=== PATIENT | male | born 1975 | race Caucasian/White ===

== ENCOUNTER 2018-04-14 17:08 | Emergency (ER) | payer SELFPAY ==
--- NOTE | 2018-04-14 17:32 | EDPHY ---
H & P Stated Complaint: L leg redness and swelling Time Seen by Provider: 04/14/18 17:31 HPI/ROS: HPI: This is a 43-year-old male who presents with Chief Complaint: L leg redness and swelling Location: Left lower leg Quality: Swelling Duration: 2 days Signs and Symptoms: No bleeding, no radiation, no numbness, no weakness, no tingling, no incontinence, no decreased range of motion, + swelling, + pain, no fever Timing: Gradually worsening Severity: [id number] Context: Patient presents with 2 complaints; 1. Two day history of left lower leg swelling and tenderness in his calf. Patient is a smoker. Denies any recent long distance travel. Patient reports that approximately 2 months ago he fell down a hill and cut his leg on a pipe. When he fell down the hill he also put his leg into contaminated water. He reports that he developed cellulitis and was placed on an antibiotic for 14 days. He denies any redness, warmth, discharge. No recent trauma. Tetanus is current. 2. Over the past 4-5 days,he has developed discomfort and soreness in his left arm that starts at the left lateral neck and extends into his 3rd 4th and 5th finger. He reports some tingling in his 3rd 4th and 5th fingers. 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 He has tried nothing for the symptoms. He denies numbness/decreased range of motion/redness/ swelling. Reports that he has a primary care provider and last laboratory studies were 6 months ago and within normal limits per the patient. Modifying Factors: None Comment: ROS: see HPI Constitutional: No fever, no chills, no weight loss Eyes: No blurred vision Respiratory: No shortness of breath, no cough Cardiovascular: No chest pain Gastrointestinal: No nausea, no vomiting no diarrhea Genitourinary: No dysuria Extremities: No myalgias Neurologic: No weakness, no numbness Skin: No rashes Hematologic: No bruising, no bleeding MEDICAL/SURGICAL/SOCIAL HISTORY: Medical history: Left leg cellulitis, asthma Surgical history: Denies Social history: Current every day smoker. 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 CONSTITUTIONAL: Extremely polite and cooperative middle-aged white male, awake and alert, no obvious distress HEENT: Atraumatic and normocephalic. NECK: supple, no midline tenderness, flexion 45 degrees, extension 45 degrees, right and left lateral flexion 45 degrees. No meningismus. Reproducible left trapezius muscle spasm and tenderness with palpation. Cardiovascular: Normal S1/S2, regular rate, regular rhythm, without murmur rub or gallop. PULMONARY/CHEST: Symmetrical and nontender. no crepitus. Clear to auscultation bilaterally. Good air movement. No accessory muscle usage. ABDOMEN: Soft, nondistended, nontender, no ecchymosis. PELVIC: no pain with rocking; bilateral hips flexion 125 degrees, extension 30 degrees, with no pain internal rotation and no pain external rotation. BACK: No midline tenderness, no paraspinous spasm, deep tendon reflexes 2/2, no pain with straight leg raise, No foot drop. Achilles reflexes are equal bilaterally. Able to walk on heels and toes without difficulty. EXTREMITIES: 2/2 pulses, strength 5/5, left SHOULDER: Arc test abduction to 180, abduction to 45, horizontal flexion 130, horizontal extension to 45, deltoid strength 5/5. No pain with Neer test/Mccray test (impingement). No Tenderness to palpation over AC joint. DIP/PIP/MCP flexion/extension intact with good light touch sensation. no deformities, no clubbing, no cyanosis. Left calf is twice the size of his right calf. Varicose veins present on bilateral lower extremities. Positive Homans sign. Negative palpable cords. NEUROLOGICAL: no focal neuro deficits. GCS 15. Light touch sensation intact. SKIN: Warm and dry, tattoos present, no erythema. no rash. Good capillary refill. Source: Patient Exam Limitations: No limitations - Personal History Current Tetanus/Diphtheria Vaccine: Yes Current Tetanus Diphtheria and Acellular Pertussis (TDAP): Yes - Medical/Surgical History Hx Asthma: Yes Hx Chronic Respiratory Disease: No Hx Diabetes: No Hx Cardiac Disease: No Hx Renal Disease: No Hx Cirrhosis: No Hx Alcoholism: No Hx HIV/AIDS: No Hx Splenectomy or Spleen Trauma: No Other PMH: L leg cellulitis, asthma, - Social History Smoking Status: Current every day smoker Constitutional: Initial Vital Signs Temperature (C) 37.1 C 04/14/18 17:22 Heart Rate 76 04/14/18 17:22 Respiratory Rate 16 04/14/18 17:22 Blood Pressure 147/88 H 04/14/18 17:22 O2 Sat (%) 95 04/14/18 17:22 O2 Delivery Mode Room Air Allergies/Adverse Reactions: No Known Allergies Allergy (Unverified 04/14/18 17:22) Home Medications: Medication Instructions Recorded Advair 100/50 (*) 04/14/18 Albuterol 04/14/18 Lidocaine [Lidoderm] 1 each TP Q12 PRN #12 adh..patch 04/14/18 Medical Decision Making - Diagnostics Imaging Results: Imaging Impressions Cervical Spine X-Ray 04/14/18 17:35 Impression: Mild degenerative disk disease C5-C6. No evidence for acute fracture. Extremity Venous Study 04/14/18 17:35 Impression: No deep venous thrombosis left leg. Probable large complex Pérez's cyst. ED Course/Re-evaluation: Vital signs reviewed and stable upon arrival. Left lower extremity ultrasound ordered to evaluate for DVT as risk factors include varicose veins and tobacco use. Cervical x-ray ordered to evaluate for degenerative changes as this appears to be secondary to cervical muscle spasm versus cervical degenerative changes with radiculopathy. 1810: Called by Radiology, Dr. Christie, who reports that left lower extremity ultrasound does not show DVT but does show complex Pérez cyst. Patient reports that he has knee immobilizer at home and will use it with rest, ice and elevation Cervical x-ray my read shows mild degenerative changes/straightening of lordosis consistent with spasm. Patient is requesting Lidoderm patches and politely declined Flexeril. Patient has [employer] insurance and will follow up with appropriate specialist if needed. No signs of neurovascular compromise/tenting of skin/compartment syndrome/ extremities and joints examined above and below area of concern and are neurovascularly intact/cellulitis. This patient was seen under the supervision of my secondary supervising physician. I evaluated care for this patient independently. Discussed this patient with Dr. Mills. Differential Diagnosis: Leg swelling including but not limited to hypoalbuminemia, congestive heart failure, cor pulmonale, chronic venous stasis and DVT. Departure - Departure Disposition: Home, Routine, Self-Care Clinical Impression: Cervical radicular pain Pérez's cyst of knee Qualifiers: Laterality: left Qualified Code(s): M71.22 - Synovial cyst of popliteal space [ Pérez], left knee Cervical spine degeneration Qualifiers: Spinal osteoarthritis complication: with radiculopathy Qualified Code(s): M47.22 - Other spondylosis with radiculopathy, cervical region Condition: Good Instructions: Bakers Cyst (ED), Cervical Radiculopathy (ED), Neck Pain (ED), Degenerative Disc Disease (ED) Additional Instructions: Wear the knee immobilizer while out of bed until pain free and the swelling resolves. Take Tylenol 650 mg every 4 hours and/or Ibuprofen 600 mg every 8 hours with food as needed for pain. Use Lidoderm patches as needed for pain. Apply ice for 30 minutes at a time; 2-3 times per day for the next 1-2 days. Follow up with Orthopedics in 1-2 weeks if symptoms persist at which time they will evaluate and recommend with you if conservative management versus MRI of the cervical and/or knee is indicated. The x-rays obtained in the emergency department today demonstrate no evidence of an obvious fracture. Sometimes fractures are not obvious on the initial set of x-rays performed in the ED. For this reason, you should have repeat x-rays performed in 7-10 days if you are having any pain exclude the possibility of an occult fracture. Return to the ER immediately if you experience new or worsening pain, discoloration, numbness, tingling, or any other symptoms that concern you. Referrals: Dennys Blunt MD [Medical Doctor] - As per Instructions Prescriptions: Lidocaine [Lidoderm] 1 each TP Q12 PRN #12 adh..patch PRN Reason: Pain, Moderate
[2018-04-14 18:48] VITALS: BP 123/86
== END 2018-04-14 19:08 | disposition home or self-care (01) ==
DX: M47.22 Other spondylosis with radiculopathy, cervical region (principal); M71.22 Synovial cyst of popliteal space [Baker], left knee; F17.200 Nicotine dependence, unspecified, uncomplicated